=== PATIENT | female | born 1990 | race Caucasian/White ===

== ENCOUNTER 2018-07-20 17:28 | Outpatient (CLI) | payer OTHER ==
[~2018-07-20] VITALS: Ht 170.2 cm; Wt 83.7 kg
[2018-07-20 17:58] VITALS: BP 132/83
[2018-07-21] MEDS ORDERED: PRENTAB9 PO (00:01)
== END 2018-07-20 18:36 | disposition home or self-care (01) ==
LOC: M LDO 17:28
PROVIDERS: ATTEND Obstetrics & Gynecology
DX: O47.1 False labor at or after 37 completed weeks of gestation (principal); Z3A.40 40 weeks gestation of pregnancy
CPT/HCPCS: 59025; G0378; G0463

== ENCOUNTER 2018-07-20 23:49 | Inpatient (IN) | payer OTHER ==
[~2018-07-20] VITALS: Ht 170.2 cm; Wt 83.7 kg
[2018-07-21] VITALS (37 sets, daily range): BP systolic 91–133; BP diastolic 51–81
[2018-07-21] MEDS ORDERED: PRENTAB9 PO (00:01)
[2018-07-21] MEDS ORDERED: LACTATED RINGER'S 1000 ML IV STA (00:13)
--- NOTE | 2018-07-21 00:24 | HPEPDOC ---
Obstetrical History & Physical General Date of Admission [id number] History of Present Illness Chief Complaint: Contractions, term Information Provided By: Patient Care Care: Good Care Dating Final EDC by: 1st trimester (US) Past Medical History Past Obstetrical History : Past Obstetrical History: Primgravida ENAMEL DIPPER History: Other (endometriosis, laparoscopy 2016, needed exlap 1 week after for bleeding) Past Medical History Medical History denies Surgical History: Other (see ENAMEL DIPPER hx) Family History Significant Family History: No pertinent family hx Social History Marital Status: Family situation: Spouse/partner home Psychosocial History: No pertinent psych hx * Smoker: non-smoker Alcohol: Denies Drugs: denies Abuse Violence Screening Have you been hit/kicked/slapp: No Have you been sexually assault: No Imunizations Tdap status: current Influenza Status: current Allergies Coded Allergies: Alcohol (Verified Allergy, Unknown, 07/21/18) RUBBING ALCOHOL Sulfa Antibiotics (Verified Allergy, Unknown, 07/21/18) Medications Scheduled Multivitamins/ ( 27-0.8 mg) 1 Tab Tab, 1 TAB PO DAILY Physical Examination Physical Examination GENERAL: Alert and oriented times three. ABDOMEN: Gravid and non-tender to touch. FETUS: Is vertex (VTX) by sterile vaginal examination (SVE), 4-5/90/0/vtx well applied EXTREMITIES: No edema. Laboratory Data 24H LABS Laboratory Tests 2 07/21/18 00:17: Serology Scanned Report Hepatitis B Testing Urine Culture: No Growth Pertinent Laboratoy Data Blood Type: O+ RBC Antibody Screen: Negative HIV: Negative Hepatitis B: Negative Hepatitis C: Unknown Rapid Plasma Reagin: Nonreactive Rubella: Immune Varicella: Immune Chlamydia/Gonorrhea: Negative Group B Streptococcus: Negative Cystic Fibrosis: Negative Glucose Tolerance Test: 81 Anatomy Ultrasound Placenta Location: Posterior Normal Anatomy: Yes Placenta Previa: No Assessment Variability: Minimal to moderate Decelerations: Variable Tocometer Contractions: Yes Frequency: regular Duration: greater than 60 seconds Strength: palpated as moderate Assessment/Plan Assessment active labor, signif change from triage visit yest afternoon Plan Admit and orient. 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 Diet: clears Group B Streptococcus (GBS) neg Labs and intravenous (IV) per unit protocol. Counseled on Pitocin and induction of labor (IOL). Lactated Ringers (LR): Bolus 1000 mL, then at 125 mL/hr. Anticipate normal spontaneous delivery (). C-S as appropriate. Sessions MD SESSIONS,KISHOR Guerrero MD Jul 21, 2018 00:24
[2018-07-21] MEDS ORDERED: FENTANYL 2MCG/ML ROPIVACAINE 0.2% IN 0.9% NACL 100ML IVBAG As Ordered ONE (00:27)
[2018-07-21 00:41] LABS: HEMATOCRIT 42.2 % (36.0-47.0); HEMOGLOBIN 14.7 g/dl (12.0-15.5); MEAN CORPUSCULAR HGB CONC 34.8 g/dl (32.0-36.5); PLATELET COUNT, AUTOMATED 211 10^3/uL (150-450); RED BLOOD COUNT 4.74 10^6/uL (4.00-5.40); WHITE BLOOD COUNT 15.6 10^3/uL (4.0-10.0)
[2018-07-21] MEDS ORDERED: ONDANSETRON 4MG/2ML VIAL (J2405) IV PRN (01:30)
[2018-07-21] MEDS ORDERED: diphenhydrAMINE INJ 50MG/ML VIAL (J1200) IV PRN (01:30)
[2018-07-21] MEDS ORDERED: LACTATED RINGER'S 1000 ML IV PRN (01:30)
[2018-07-21] MEDS ORDERED: ePHEDrine SULFATE 25 MG/5 ML(5MG/ML) SYRINGE IV PRN (01:30)
[2018-07-21] MEDS ORDERED: EPIDURAL/PCA KEYS XX PRN (01:30)
[2018-07-21] MEDS ORDERED: REFRIGERATOR IV KEYS XX PRN (01:30)
[2018-07-21] MEDS ORDERED: NALOXONE INJ 0.4 MG/1 ML VIAL (J2310) IV PRN (01:30)
[2018-07-21] MEDS ORDERED: FENTANYL/ROPIVACAINE/NACL BAG 100 ML EPIDURAL SCH (01:30)
[2018-07-21] MEDS ORDERED: EPIDURAL COMMENT XX SCH (01:30)
[2018-07-21] MEDS: LR 1,000 ML IV SCH ×2 (01:45→05:13)
[2018-07-21] MEDS ORDERED: OXYTOCIN 30 UNITS IN 0.9% NaCl 500ML IV BAG (J2590) As Ordered ONE (03:37)
--- NOTE | 2018-07-21 03:38 | IPNPDOC ---
Text Note Date of Service The patient was seen on 07/21/18. NOTE FHT Cat 2, mod nicolas throughout, some random intermittent decels difficult to c haracterize, not repetitive Cx 9/100/0, AROM with a small amt clear fluid watching FHT closely, will recheck in 1-2 hrs, sooner prn Sessions VS,Ewelina, I+O VS, Ewelina I+O Laboratory Tests 07/21/18 00:20 Red Blood Count 4.74, Mean Corpuscular Volume 89.0, Mean Corpuscular Hemoglobin 31.0, Mean Corpuscular Hemoglobin Concent 34.8, Red Cell Distribution Width 13.1 SESSIONS,KISHOR Guerrero MD Jul 21, 2018 03:38
[2018-07-21] MEDS ORDERED: OXYTOCIN DRIP 30 UNITS in APPROPRIATE DILUENT 1 EA IV SCH ×2 (05:15→06:36)
[2018-07-21] MEDS ORDERED: RHOGAM 300 MCG (1500 IU) INJ (J2790) IM SCH (06:45)
[2018-07-21] MEDS ORDERED: METOCLOPRAMIDE INJ 10MG/2ML VIAL (J2765) IV PRN (06:45)
[2018-07-21] MEDS ORDERED: DIBUCAINE 1% OINTMENT 30GM TOP PRN (06:45)
[2018-07-21] MEDS ORDERED: MEASLES,MUMPS,RUBELLA VACCINE INJ (MMR-II) (90707) SC SCH (06:45)
--- NOTE | 2018-07-21 06:46 | DNPDOC ---
[facility] Delivery Note Delivery Note DATE OF DELIVERY: [id number] PREDELIVERY DIAGNOSIS: 40 3/7 weeks' gestation and labor. POST DELIVERY DIAGNOSIS: Delivered. PROCEDURE: Spontaneous vaginal delivery PIZZA COOK: Dr. Vegas ANESTHESIA: epidural ESTIMATED BLOOD LOSS: 200 mL. FINDINGS: 6 pound 15 ounce female infant, Score 8/8, nuchal cord times 1, loose. DELIVERY SUMMARY: Pushed for ~90 min, moderate effort. Vtx EDEN then to LOT, no delay of either shoulder. Good shape to abdomen, crying. Cord C/C by FOB. Cord blood. Placenta intact with some trailing membranes easily teased out with Yael. Bimanual exam and ANGELA explored, no membranes remain. Fundus firm with pitocin going 999. Bilat inner labial lacs but hemostatic, not closed, good natural reapproximation. Uncomplicated. Tomas VEGAS,KISHOR Guerrero MD Jul 21, 2018 06:46
[2018-07-21] MEDS: DOCUSATE SODIUM 100 MG CAP PO SCH ×2 (09:28→21:04)
[2018-07-21] MEDS: PRENATAL VITAMINS CHEWABLE TABLET PO SCH (09:28)
[2018-07-21] MEDS: IBUPROFEN 800 MG TAB PO PRN (18:04)
[2018-07-22 06:34] VITALS: BP 117/79
[2018-07-22] MEDS: PRENATAL VITAMINS CHEWABLE TABLET PO SCH (07:58)
[2018-07-22] MEDS: IBUPROFEN 800 MG TAB PO PRN ×2 (07:58→20:56)
[2018-07-22] MEDS: DOCUSATE SODIUM 100 MG CAP PO SCH ×2 (07:58→20:54)
--- NOTE | 2018-07-22 08:03 | IPNPDOC ---
Text Note Date of Service The patient was seen on 07/22/18. NOTE PPD1 States feeling well, pain controlled with prescribed meds. Baby bonding and feeding well. No heavy VB. Lochia slowing. Ambulatory. Tolerating PO without issues. Voiding spont. VSSAF NAD A&O RRR CTAB LE no C/C/E Ut at U-2, firm a/p: Doing well. Cont routine care. D/C tomorrow likely. Sessions VSEwelina, I+O VSEwelina I+O Vital Signs Date Time Temp Pulse Resp B/P (MAP) Pulse Ox O2 Delivery O2 Flow Rate FiO2 07/22/18 06:34 96.9 88 18 117/79 (92) I&O- Last 24 Hours up to 6 AM 07/22/18 06:00 Intake Total 800 ml Output Total 650 ml Balance 150 ml SESSIONS,KISHOR Guerrero MD Jul 22, 2018 08:03
[2018-07-22] MEDS: ACETAMINOPHEN TAB 650MG DOSE (2X325MG) PO PRN (15:26)
[2018-07-22 18:00] VITALS: BP 119/76
[2018-07-23 06:16] VITALS: BP 126/76
[2018-07-23] MEDS: ACETAMINOPHEN TAB 650MG DOSE (2X325MG) PO PRN (06:33)
--- NOTE | 2018-07-23 07:38 | IPNPDOC ---
Progress Note Date of Service: Jul 23, 2018 Day#: 2 Progress Note PPD 2 SUBJECT: Darlyn is a 28yo [id number] s/p uncomplicated at 40w3d on 07/21 after presenting in active labor, doing well day # 2. She has been ambulating, voiding spontaneously without issue and tolerating regular diet. Bottle feeding. Reports lochia is like a normal period. No f/c/n/v/CP/SOB. OBJECTIVE: VITAL SIGNS: Within normal limits, afebrile. Alert and oriented times three. Abdomen: Fundus firm at U-2. Soft, NTTP. Extremities: no pain with palpation of calves ASSESSMENT: Darlyn is a 28yo [id number] s/p uncomplicated at 40w3d on 07/21 after presenting in active labor, doing well day # 2. Vitals within normal limits, afebrile, hemodynamically stable with no evidence of infection. PLAN: 1. Discharge to home today. 2. Tylenol and Motrin for pain. 3. 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 Routine PP visit in 6 weeks in clinic. 5. Discussed return precautions at length. Dr. Gina Obregon MD VS, I&O, 24H, Fishbone Vital Signs/I&O Vital Signs Date Time Temp Pulse Resp B/P (MAP) Pulse Ox O2 Delivery O2 Flow Rate FiO2 07/23/18 06:16 97.0 95 17 126/76 (93) Gina Obregon MD Jul 23, 2018 07:38
[2018-07-23] MEDS: PRENATAL VITAMINS CHEWABLE TABLET PO SCH (08:08)
[2018-07-23] MEDS: DOCUSATE SODIUM 100 MG CAP PO SCH (08:08)
[2018-07-23] MEDS ORDERED: MAPA500T2 PO (08:13)
[2018-07-23] MEDS ORDERED: IBUP-1114 PO (08:13)
== END 2018-07-23 11:15 | disposition home or self-care (01) | DRG 807 ==
LOC: M LDO 23:49 → M LDI 07-21 00:11 → M OBS 07-21 11:45
PROVIDERS: ADMIT Obstetrics & Gynecology; ATTEND Obstetrics & Gynecology
PROC: 10E0XZZ Delivery of Products of Conception, External Approach (ICD-10-PCS; principal; 2018-07-21)
PROC: 10907ZC Drainage of Amniotic Fluid, Therapeutic from Products of Conception, Via Natural or Artificial Opening (ICD-10-PCS; 2018-07-21)
DX: O48.0 Post-term pregnancy (principal); Z37.0 Single live birth; Z3A.40 40 weeks gestation of pregnancy; O70.0 First degree perineal laceration during delivery; O73.1 Retained portions of placenta and membranes, without hemorrhage

== ENCOUNTER → 2021-02-14 | Outpatient (CLI) | payer OTHER ==
[~2021-02-14] MED LIST: IBUP-1114 PO; MAPA500T2 PO; PRENTAB9 PO; PROHANCE 279.3MG/ML 15ML VIAL As Ordered ONE
== END ==
LOC: M RAD 08:48
PROVIDERS: ATTEND Dentist Oral and Maxillofacial Surgery
DX: M26.609 Unspecified temporomandibular joint disorder, unspecified side (principal)

== ENCOUNTER → 2021-11-29 | Outpatient (CLI) | payer OTHER ==
[~2021-11-29] MED LIST changes: -PROHANCE 279.3MG/ML 15ML VIAL As Ordered ONE
== END ==
LOC: M RAD 08:20
PROVIDERS: ATTEND Physician Assistant
DX: J32.8 Other chronic sinusitis (principal)

== ENCOUNTER → 2023-10-22 | Outpatient (CLI) | payer OTHER | LOC: M RAD 08:27 | PROVIDERS: ATTEND Family Medicine | DX: J32.9 Chronic sinusitis, unspecified (principal) ==

== ENCOUNTER → 2023-12-20 | Outpatient (CLI) | payer OTHER | LOC: M WHC 10:49 | PROVIDERS: ATTEND Obstetrics & Gynecology | DX: N83.291 Other ovarian cyst, right side (principal); N83.292 Other ovarian cyst, left side ==

== ENCOUNTER 2024-01-30 09:59 | Inpatient (IN) | payer OTHER ==
[2024-01-30] VITALS (7 sets, daily range): BP systolic 88–95; BP diastolic 52–58; TEMP 96.4–97.3; O2SAT 92–100
[~2024-01-30] VITALS: Ht 170.2 cm; Wt 76.2 kg
[~2024-01-30 09:59] MED LIST changes: +HYDR-643 PO; +LEVOTAB10 PO; +LEXA1TAB2 PO; +LR 1,000 ML IV SCH; +OMEP-173 PO; +TIZA2CAP PO; +TOPA50TA8 PO; +VALA500T5 PO
[2024-01-30] MEDS ORDERED: LR 1,000 ML IV SCH (10:10)
[2024-01-30] MEDS ORDERED: PERC5TAB12 PO (10:20)
[2024-01-30 10:31] LABS: HEMATOCRIT 41.1 % (36.0-47.0); HEMOGLOBIN 13.5 g/dl (12.0-15.5); MEAN CORPUSCULAR HGB CONC 32.8 g/dl (32.0-36.5); MEAN CORPUSCULAR VOLUME 85.1 fl (80.0-96.0); PLATELET COUNT, AUTOMATED 274 10^3/uL (150-450); RED BLOOD COUNT 4.83 10^6/uL (4.00-5.40); WHITE BLOOD COUNT 4.6 10^3/uL (4.0-10.0)
[2024-01-30 10:55] LABS: BLOOD UREA NITROGEN 9 MG/DL (9-23); CALCIUM LEVEL 9.2 MG/DL (8.5-10.1); CARBON DIOXIDE LEVEL 26 MMOL/L (20-31); CHLORIDE LEVEL 110 MMOL/L (98-107); CREATININE FOR GFR 0.84 MG/DL (0.55-1.30); GLOMERULAR FILTRATION RATE > 60.0 (>60); GLUCOSE, FASTING 94 MG/DL (60-100); POTASSIUM SERUM 4.3 MMOL/L (3.5-5.1); SODIUM LEVEL 141 MMOL/L (136-145)
[2024-01-30] MEDS ORDERED: HOME MED LIST COMPLETE! XX SCH (11:05)
[2024-01-30] MEDS ORDERED: MIDAZOLAM INJ 2MG/2ML VIAL As Ordered ONE (11:17)
[2024-01-30] MEDS ORDERED: fentaNYL 100 MCG/2 ML INJECTION As Ordered ONE (11:17)
[2024-01-30] MEDS ORDERED: LIDOCAINE 2% 100MG/5ML SDV (FOR ANES.) As Ordered ONE (11:18)
[2024-01-30] MEDS ORDERED: propofoL 200 MG/20 ML VIAL As Ordered ONE (11:18)
[2024-01-30] MEDS ORDERED: ROCURONIUM BROMIDE 50MG/5ML VIAL As Ordered ONE (11:18)
[2024-01-30] MEDS ORDERED: ONDANSETRON 4MG 2ML VIAL As Ordered ONE (11:19)
[2024-01-30] MEDS ORDERED: ACETAMINOPHEN 1000MG 100ML IV BAG As Ordered ONE (11:20)
[2024-01-30] MEDS: ceFAZolin SOD 2 GM in IV 1 EA IV ONE (12:55)
[2024-01-30] MEDS ORDERED: SUGAMMADEX SODIUM 500 MG/5 ML VIAL (BRIDION) As Ordered ONE (13:10)
[2024-01-30] MEDS ORDERED: KETOROLAC 60MG 2ML VIAL As Ordered ONE (13:11)
[2024-01-30] MEDS ORDERED: GLYCOPYRROLATE INJ 0.2 MG/ML 2 ML VIAL As Ordered ONE (13:14)
[2024-01-30] MEDS ORDERED: ePHEDrine SULFATE 25 MG/5 ML(5MG/ML) SYRINGE As Ordered ONE (13:19)
[2024-01-30] MEDS: FLUORESCEIN 10% (100MG/ML) 5ML VIAL As Ordered ONE (14:10)
[2024-01-30] MEDS ORDERED: HYDROmorphone HCL 2MG/ML 1ML VIAL As Ordered ONE (14:27)
[2024-01-30] MEDS ORDERED: HYDROMORPHONE HCL 0.5 MG/ 0.5 ML SYRINGE IV PRN (14:50)
[2024-01-30] MEDS: LR 1,000 ML IV SCH ×2 (14:50→16:20)
[2024-01-30] MEDS ORDERED: ONDANSETRON 4MG 2ML VIAL IV PRN (14:50)
[2024-01-30] MEDS ORDERED: fentaNYL 100 MCG/2 ML INJECTION IV PRN (14:50)
[2024-01-30] MEDS: oxyCODONE 5MG TAB PO PRN (15:26)
[2024-01-30] MEDS ORDERED: PERCOCET 5MG/325MG TAB PO PRN (15:45)
[2024-01-30] MEDS: SIMETHICONE 80MG CHEW TAB PO SCH (19:00)
[2024-01-30] MEDS: ESCITALOPRAM OXALATE 10 MG TAB (LEXAPRO) PO SCH (20:59)
[2024-01-30] MEDS: TOPIRAMATE (TopAMAX) 100 MG TAB PO SCH (21:00)
[2024-01-30] MEDS: IBUPROFEN 800 MG TAB PO SCH (22:50)
[2024-01-31 01:00] VITALS: BP 95/50; TEMP 97.3; O2SAT 99
[2024-01-31 05:00] VITALS: BP 96/53; TEMP 98.8; O2SAT 98
[2024-01-31 08:45] VITALS: BP 91/50; TEMP 97.9; O2SAT 99
[2024-01-31] MEDS ORDERED: IBUP80TA PO (08:45)
[2024-01-31] MEDS ORDERED: LUPR22.5 IM (08:45)
== END 2024-01-31 11:50 | disposition home or self-care (01) | DRG 743 ==
LOC: M OR 09:59 → EDSTATUS 11:50 → M PED 16:00
PROVIDERS: ADMIT Obstetrics & Gynecology; ATTEND Obstetrics & Gynecology
PROC: 0UT74ZZ Resection of Bilateral Fallopian Tubes, Percutaneous Endoscopic Approach (ICD-10-PCS; 2024-01-30)
PROC: 0UB24ZZ Excision of Bilateral Ovaries, Percutaneous Endoscopic Approach (ICD-10-PCS; 2024-01-30)
PROC: 0DNU4ZZ Release Omentum, Percutaneous Endoscopic Approach (ICD-10-PCS; 2024-01-30)
PROC: 8E0W4CZ Robotic Assisted Procedure of Trunk Region, Percutaneous Endoscopic Approach (ICD-10-PCS; 2024-01-30)
PROC: 0TJB8ZZ Inspection of Bladder, Via Natural or Artificial Opening Endoscopic (ICD-10-PCS; 2024-01-30)
PROC: 0UT94ZZ Resection of Uterus, Percutaneous Endoscopic Approach (ICD-10-PCS; principal; 2024-01-30 11:50)
DX: N80.02 Deep endometriosis of the uterus (principal); N80.123 Deep endometriosis of bilateral ovaries; R10.2 Pelvic and perineal pain; Z79.899 Other long term (current) drug therapy; Z88.2 Allergy status to sulfonamides; Z91.048 Other nonmedicinal substance allergy status; M06.9 Rheumatoid arthritis, unspecified